=== PATIENT | female | born 1990 | race Caucasian/White ===

== ENCOUNTER 2016-05-17 14:39 | Emergency (ER) | payer SELFPAY | END 2016-05-17 18:10 | disposition home or self-care (01) | LOC: D.ER 14:39 | DX: J06.9 Acute upper respiratory infection, unspecified (principal) ==

== ENCOUNTER 2018-01-13 20:29 | Emergency (ER) | payer SELFPAY ==
[~2018-01-13] VITALS: Ht 149.9 cm; Wt 62.7 kg
[2018-01-13 20:32] VITALS: Ht 149.9 cm; Wt 62.7 kg
[2018-01-13 20:53] LABS: APPEARANCE HAZY (CLEAR); BILIRUBIN NEGATIVE (NEGATIVE); COLOR YELLOW (YELLOW); GLUCOSE NEGATIVE (NEGATIVE); KETONE NEGATIVE (NEGATIVE); NITRITE NEGATIVE (NEGATIVE); PROTEIN 1+ mg/dL (NEGATIVE); UROBILINOGEN NORMAL (NORMAL)
[2018-01-13 20:55] LABS: BACTERIA MODERATE /hpf (NONE SEEN); EPITHELIAL CELLS 0-5 /hpf (0-5); RED CELLS - URINE 25-50 /hpf (0-5)
[2018-01-13 20:56] LABS: CALCIUM OXALATE CRYSTALS 0-5 /hpf (NONE SEEN)
[2018-01-13 21:02] LABS: BASOPHILS 0.2 % (0-2); EOSINOPHILS 4.8 % (0-7); HEMATOCRIT 36.3 % (36.0-48.0); IMMATURE GRANULOCYTES 0.3 % (0-5); LYMPHOCYTES 19.6 % (15-50); MCH 27.7 pg (26.0-34.0); MCHC 33.1 g/dL (31.0-37.0); MCV 83.8 fL (80.0-100.0); MEAN PLATELET VOLUME 11.4 fL (7.4-10.4); MONOCYTES 5.8 % (2-11); NEUTROPHILS 69.3 % (40-80); PLATELET COUNT 156 10x3/uL (130-400); RBC 4.33 10x6/uL (4.00-5.40); RDW 14.1 % (11.5-14.5); WBC 11.5 10x3/uL (4.8-10.8)
[2018-01-13 21:09] LABS: ALBUMIN 3.6 g/dL (3.4-5.0); ANION GAP 7.5 mmol/L (8-16); BILIRUBIN - TOTAL 0.52 mg/dL (0.2-1.3); CALCIUM 7.9 mg/dL (8.5-10.1); POTASSIUM - SERUM 3.5 mmol/L (3.5-5.1); PROTEIN - SERUM 7.3 g/dL (6.4-8.2)
[2018-01-13 21:25] LABS: HCG SERUM POSITIVE (NEGATIVE)
[2018-01-13 23:51] VITALS: BP 115/85
== END 2018-01-13 23:51 | disposition home or self-care (01) ==
LOC: D.ER 20:29
PROVIDERS: Family Medicine
DX: O20.0 Threatened abortion (principal); Z3A.00 Weeks of gestation of pregnancy not specified

== ENCOUNTER 2018-01-25 21:50 | Emergency (ER) | payer BC ==
[~2018-01-25] VITALS: Ht 149.9 cm; Wt 68.0 kg
[2018-01-25 22:09] VITALS: Ht 149.9 cm; Wt 68.0 kg
[2018-01-25] MEDS ORDERED: PRENATAL COMPLE1 TAB PO (22:11)
[2018-01-25] MEDS ORDERED: MUPIROCIN22 GM TOPICAL (23:15)
[2018-01-25] MEDS ORDERED: CLEOCIN HCL300 MG PO (23:15)
[2018-01-25 23:49] VITALS: BP 118/78
== END 2018-01-25 23:46 | disposition home or self-care (01) ==
LOC: D.ER 21:50
DX: L02.31 Cutaneous abscess of buttock (principal)

== ENCOUNTER 2018-04-08 23:30 | Emergency (ER) | payer BC ==
[~2018-04-08] VITALS: Ht 149.9 cm; Wt 64.4 kg
[~2018-04-08 23:30] MED LIST: CLEOCIN HCL300 MG PO; MUPIROCIN22 GM TOPICAL; PRENATAL COMPLE1 TAB PO
[2018-04-08 23:38] VITALS: Ht 149.9 cm; Wt 64.4 kg
[2018-04-09 00:19] LABS: HCG URINE NEGATIVE (NEGATIVE)
[2018-04-09 00:30] LABS: APPEARANCE HAZY (CLEAR); COLOR YELLOW (YELLOW)
[2018-04-09 00:31] LABS: BACTERIA MANY /hpf (NONE SEEN); BILIRUBIN NEGATIVE (NEGATIVE); EPITHELIAL CELLS 0-5 /hpf (0-5); GLUCOSE NEGATIVE (NEGATIVE); KETONE NEGATIVE (NEGATIVE); NITRITE POSITIVE (NEGATIVE); PROTEIN NEGATIVE (NEGATIVE); RED CELLS - URINE 0-5 /hpf (0-5); UROBILINOGEN NORMAL (NORMAL)
[2018-04-09] MEDS ORDERED: MACROBID100 MG PO (00:34)
[2018-04-09 00:43] VITALS: BP 122/68
== END 2018-04-09 00:42 | disposition home or self-care (01) ==
LOC: D.ER 23:30
PROVIDERS: Family Medicine
DX: N39.0 Urinary tract infection, site not specified (principal)

== ENCOUNTER 2018-04-29 00:24 | Emergency (ER) | payer SELFPAY ==
[~2018-04-29] VITALS: Ht 149.9 cm; Wt 64.5 kg
[~2018-04-29 00:24] MED LIST changes: +MACROBID100 MG PO
[2018-04-29 00:33] VITALS: BP 118/70; Ht 149.9 cm; Wt 64.5 kg
[2018-04-29 01:10] LABS: BASOPHILS 0.5 % (0-2); EOSINOPHILS 3.5 % (0-7); HEMATOCRIT 41.7 % (36.0-48.0); HEMOGLOBIN 13.6 g/dL (12-16); IMMATURE GRANULOCYTES 0.3 % (0-5); LYMPHOCYTES 22.5 % (15-50); MCH 27.7 pg (26.0-34.0); MCHC 32.6 g/dL (31.0-37.0); MCV 84.9 fL (80.0-100.0); MEAN PLATELET VOLUME 12.4 fL (7.4-10.4); MONOCYTES 9.9 % (2-11); NEUTROPHILS 63.3 % (40-80); PLATELET COUNT 168 10x3/uL (130-400); RBC 4.91 10x6/uL (4.00-5.40); WBC 6.4 10x3/uL (4.8-10.8)
[2018-04-29 01:12] LABS: APPEARANCE CLEAR (CLEAR); BILIRUBIN NEGATIVE (NEGATIVE); COLOR DK YELLOW (YELLOW); GLUCOSE NEGATIVE (NEGATIVE); HCG SERUM NEGATIVE (NEGATIVE); KETONE NEGATIVE (NEGATIVE); NITRITE NEGATIVE (NEGATIVE); PROTEIN NEGATIVE (NEGATIVE); UROBILINOGEN NORMAL (NORMAL)
[2018-04-29 01:19] LABS: ALBUMIN 3.9 g/dL (3.4-5.0); ALKALINE PHOSPHATASE 74 U/L (46-116); ALT (SGPT) 17 U/L (10-68); BILIRUBIN - TOTAL 1.14 mg/dL (0.2-1.3); CALC OSMOLALITY 279 mosm/kg (275-300); CALCIUM 8.5 mg/dL (8.5-10.1); CARBON DIOXIDE 22.9 mmol/L (21.0-32.0); CHLORIDE - SERUM 104 mmol/L (98-107); CREATININE - SERUM 0.8 mg/dL (0.6-1.3); GLUCOSE 92 mg/dL (74-106); POTASSIUM - SERUM 3.7 mmol/L (3.5-5.1); PROTEIN - SERUM 8.5 g/dL (6.4-8.2); SODIUM 140 mmol/L (136-145); UREA NITROGEN 14 mg/dL (7-18); eGFR NON AFRICAN AMERICAN 90 mL/min (90-120)
[2018-04-29 01:27] LABS: AMYLASE - SERUM 45 U/L (25-115); LIPASE 165 U/L (73-393); TROPONIN-I < 0.017 ng/mL (0.000-0.060)
== END 2018-04-29 02:18 | disposition left against medical advice (07) ==
LOC: D.ER 00:24
PROVIDERS: Family Medicine
DX: R10.30 Lower abdominal pain, unspecified (principal)

== ENCOUNTER 2019-06-06 23:18 | Outpatient (CLI) | payer MEDICAID ==
[2018-04-29 00:33] VITALS: BMI 28.7
[2019-06-07 00:13] LABS: APPEARANCE HAZY (CLEAR); BILIRUBIN NEGATIVE (NEGATIVE); COLOR YELLOW (YELLOW); GLUCOSE NEGATIVE (NEGATIVE); KETONE NEGATIVE (NEGATIVE); NITRITE NEGATIVE (NEGATIVE); PROTEIN NEGATIVE (NEGATIVE); SPECIFIC GRAVITY 1.015 (1.005-1.020); UROBILINOGEN NORMAL (NORMAL)
[2019-06-07 00:15] LABS: AMORPHOUS SEDIMENT <1+ /lpf (NONE SEEN); BACTERIA FEW /hpf (NEGATIVE); EPITHELIAL CELLS 0-5 /hpf (0-5); RED CELLS - URINE NONE SEEN /hpf (0-5); WHITE CELLS - URINE 0-5 /hpf (NEGATIVE)
[2019-06-07 00:19] LABS: UDS - AMPHET NEGATIVE QUAL (NEGATIVE); UDS - BARB NEGATIVE QUAL (NEGATIVE); UDS - BENZO NEGATIVE QUAL (NEGATIVE); UDS - COCAINE NEGATIVE QUAL (NEGATIVE); UDS - OPIATE NEGATIVE QUAL (NEGATIVE); UDS - PCP NEGATIVE QUAL (NEGATIVE); UDS - THC NEGATIVE QUAL (NEGATIVE)
[2019-06-07 02:59] LABS: BASOPHILS 0.1 % (0-2); EOSINOPHILS 4.4 % (0-7); HEMATOCRIT 30.7 % (36.0-48.0); IMMATURE GRANULOCYTES 0.5 % (0-5); LYMPHOCYTES 13.5 % (15-50); MCHC 32.6 g/dL (31.0-37.0); MEAN PLATELET VOLUME 11.8 fL (7.4-10.4); MONOCYTES 6.4 % (2-11); NEUTROPHILS 75.1 % (40-80); RBC 3.57 10x6/uL (4.00-5.40); WBC 10.4 10x3/uL (4.8-10.8)
[2019-06-07 03:00] LABS: PLATELET COUNT 104 10x3/uL (130-400)
== END 2019-06-07 03:35 | disposition home or self-care (01) ==
LOC: D.LDO 23:18 → D.LD 23:21 → D.LDO 06-07 03:35
PROVIDERS: ATTEND Student in an Organized Health Care Education/Training Program
DX: O26.892 Other specified pregnancy related conditions, second trimester (principal); Z3A.26 26 weeks gestation of pregnancy; R10.9 Unspecified abdominal pain

== ENCOUNTER 2019-07-13 08:00 | Outpatient (CLI) | payer MEDICAID ==
[2018-04-29 00:33] VITALS: Ht 149.9 cm; Wt 79.8 kg
[~2019-07-13] VITALS: Ht 149.9 cm; Wt 79.8 kg
[2019-07-13 12:12] LABS: BASOPHILS 0.2 % (0-2); EOSINOPHILS 5.4 % (0-7); HEMOGLOBIN 10.5 g/dL (12-16); IMMATURE GRANULOCYTES 1.1 % (0-5); LYMPHOCYTES 16.2 % (15-50); MCH 27.2 pg (26.0-34.0); MCHC 31.8 g/dL (31.0-37.0); MCV 85.5 fL (80.0-100.0); MEAN PLATELET VOLUME 12.5 fL (7.4-10.4); NEUTROPHILS 70.1 % (40-80); RBC 3.86 10x6/uL (4.00-5.40); RDW 13.8 % (11.5-14.5); WBC 9.5 10x3/uL (4.8-10.8)
[2019-07-13 12:19] LABS: PLATELET COUNT 132 10x3/uL (130-400)
[2019-07-13 12:27] LABS: CALC OSMOLALITY 275 mosm/kg (275-300); CALCIUM 8.6 mg/dL (8.5-10.1); CARBON DIOXIDE 26.1 mmol/L (21.0-32.0); CHLORIDE - SERUM 105 mmol/L (98-107); CREATININE - SERUM 0.5 mg/dL (0.6-1.3); GLUCOSE 92 mg/dL (74-106); POTASSIUM - SERUM 3.6 mmol/L (3.5-5.1); SODIUM 140 mmol/L (136-145); UREA NITROGEN 4 mg/dL (7-18); eGFR NON AFRICAN AMERICAN > 90 mL/min (90-120)
== END 2019-07-13 08:01 | disposition home or self-care (01) ==
LOC: D.OPS 08:00 → D.PAN 07-14 11:00 → D.OPS 07-14 11:00 → EDSTATUS 07-14 11:00 → D.OPS 07-14 13:00
PROVIDERS: ATTEND Surgery
DX: C50.912 Malignant neoplasm of unspecified site of left female breast (principal)

== ENCOUNTER 2019-08-16 08:29 | Observation (INO) | payer MEDICAID ==
[~2019-08-16] VITALS: Ht 149.9 cm; Wt 74.1 kg
--- NOTE | ~2019-08-16 | OP ---
PATIENT NAME: ROBERTO ORELLANA MEDICAL RECORD: [id number] :86 LOCATION:[id number] ADMISSION DATE:08/17/19 SURGEON: VALDO GREEN MD DATE OF OPERATION: 08/17/2019 PREOPERATIVE DIAGNOSES: 1. Left invasive ductal carcinoma. 2. . POSTOPERATIVE DIAGNOSES: 1. Left invasive ductal carcinoma. 2. . PROCEDURE: Bilateral simple mastectomies with left sentinel lymph node biopsy. SURGEON: Valdo Green MD REPORT OF PROCEDURE: The patient underwent lymphoscintigraphy, which showed uptake in the left axilla. The patient was taken to the operating room where her chest and axilla were prepped and draped in sterile fashion. We approached the left side first. An ovoid incision was made around the patient's left nipple areolar complex and electrocautery was used to dissect through the subcutaneous tissues. We dissected down through the subcutaneous tissue and due to the extremely large size of this lady's breast, it was difficult to determine where her demarcation was between the subcutaneous tissues and the breast tissue. We eventually dissected superiorly until we were able to get over top of the palpable mass, which was present at the 11 o'clock position in the left breast. We continued this dissection of the breast and subcutaneous tissues up to the clavicle on the left side. We then extended our dissection subcutaneously towards the midline overlying the sternum and inferiorly towards the rectus musculature. Laterally, we went out towards the axilla and once we had the breast freed up from all surrounding tissues, then, it was taken off of the pectoralis muscle including the fascia using electrocautery. This portion of the breast tissue was marked with sutures and then we reapproximated some of the fatty tissue, which would have been taken off during our dissection and noted to have it in more of an anatomical location. This was sent off for permanent specimen. We then inspected the patient's axilla and found a single sentinel lymph node with the reading of 13,000. This was excised and clips were placed proximally and distally on any of the lymphatic vessels. This was sent off for permanent specimen as well. We inspected the remainder of the axilla and could not find any active nodules which required resection. We then irrigated out the wound with sterile water. Any bleeding that was found was treated with electrocautery or tied off with 3-0 silk ties. Once we had good blood control, then 10 flat MARCEL drains were inserted into the subcutaneous tissues coming in from the left lateral chest. Once we had this done, we ended up debriding some of the subcutaneous fatty tissue on the inferior aspect of the wound and took off some excess skin in order to make it more cosmetically appealing appearance to the patient's incision all this tissue that was removed was sent off for permanent specimen. We then reapproximated the subcutaneous tissues with multiple interrupted 3-0 Vicryl and the skin was closed with elizabet. We approached the right side. We made a large ovoid incision around the nipple areolar complex and using electrocautery, came down through the subcutaneous tissues and made a flap superiorly and inferiorly up to the patient's clavicle and down to the patient's rectus musculature. We went medially towards the sternum and laterally out towards the axilla. Once we had OPERATIVE REPORT [id number] ROBERTO ORELLANA all of this tissue freed up, then we took the breast tissue off of the chest wall including the pectoralis fascia using electrocautery. This specimen was marked appropriately and sent off for permanent. There was a lot of thickness to the tissue on the inferior aspect of the incision in this area and a little medially, we debrided some of the subcutaneous tissue and sent this off for permanent specimen. This made of a better cosmetic appearance to our repair. We then placed a 10 flat MARCEL drains times 2 into the wound bed coming in from the right lateral chest. The wounds were reapproximated with multiple interrupted 3-0 Vicryls and the skin was closed with elizabet. The drains were sutured into place with 2-0 nylons. COMPLICATIONS: None. CONDITION: Stable. ANESTHESIA: General endotracheal and paravertebral blocks. BLOOD LOSS: 500 mL. TRANSINT:[id number] Voice Confirmation ID: [id number] DOCUMENT ID: [id number] VALDO GREEN MD CC: ANT GONZALEZ DO and KOFFI DAO MD [id number] DICTATION DATE: 08/17/19 1508 STRAIN TECHNICIAN: 08/17/19 1606 ADM IN [facility] [address] [place] [address]
[2019-08-16] MEDS ORDERED: IBUPROFEN600 MG PO (14:37)
[2019-08-16 15:10] LABS: BASOPHILS 0.5 % (0-2); EOSINOPHILS 6.4 % (0-7); HEMATOCRIT 34.3 % (36.0-48.0); HEMOGLOBIN 10.1 g/dL (12-16); IMMATURE GRANULOCYTES 0.4 % (0-5); LYMPHOCYTES 29.3 % (15-50); MCH 25.8 pg (26.0-34.0); MCHC 29.4 g/dL (31.0-37.0); MCV 87.5 fL (80.0-100.0); MEAN PLATELET VOLUME 10.9 fL (7.4-10.4); MONOCYTES 6.4 % (2-11); RBC 3.92 10x6/uL (4.00-5.40); RDW 14.3 % (11.5-14.5); WBC 7.7 10x3/uL (4.8-10.8)
[2019-08-16 15:14] LABS: PLATELET COUNT 240 10x3/uL (130-400)
[2019-08-16 15:23] LABS: APTT 32.1 SECONDS (22.8-39.4); INR 1.04 (0.85-1.17); PROTIME 13.6 SECONDS (11.6-15.0)
[2019-08-16 15:32] LABS: CALC OSMOLALITY 276 mosm/kg (275-300); CALCIUM 8.6 mg/dL (8.5-10.1); CARBON DIOXIDE 27.6 mmol/L (21.0-32.0); CHLORIDE - SERUM 103 mmol/L (98-107); CREATININE - SERUM 0.9 mg/dL (0.6-1.3); GLUCOSE 75 mg/dL (74-106); POTASSIUM - SERUM 4.1 mmol/L (3.5-5.1); SODIUM 139 mmol/L (136-145); UREA NITROGEN 13 mg/dL (7-18); eGFR NON AFRICAN AMERICAN 78 mL/min (90-120)
[2019-08-17 06:42] VITALS: BP 119/76; BMI 33.0
[2019-08-17 06:56] LABS: HCG URINE NEGATIVE (NEGATIVE)
[2019-08-17 15:40] VITALS: BP 97/61
--- NOTE | 2019-08-17 15:59 | NUR ---
RECEIVED PATIENT FROM RECOVERY. NO C/O PAIN. NO S/S OF ACUTE DISTRESS NOTED. IV TO RIGHT HAND, NS INFUSING @ 75ML/HR. SITE PATENT WITHOUT REDNESS OR SWELLING. BILATERAL MASTECTOMY, DRESSING C/D/I. 4 MARCEL DRAINS, 2 ON THE RIGHT SIDE OF CHEST AND 2 ON LEFT SIDE OF CHEST. ALERT AND ORIENTED. WEARS DENTURES. DENIES ANY NEEDS AT THIS TIME. CALL LIGHT IN REACH. WILL CONTINUE TO MONITOR.
--- NOTE | 2019-08-17 18:32 | NUR ---
RESTING IN BED WITH EYES CLOSED. RESPIRATIONS EVEN AND UNLABORED. NO C/O PAIN. NO S/S OF ACUTE DISTRESS NOTED. DENIES ANY NEEDS AT THIS TIME. CALL LIGHT IN REACH. WILL CONTINUE TO MONITOR.
[2019-08-17 18:42] VITALS: BP 97/61; Ht 149.9 cm; Wt 74.1 kg
[2019-08-17 20:00] VITALS: BP 87/42
--- NOTE | 2019-08-17 20:00 | NUR ---
RESTING IN BED, DENIES PAIN OR NEEDS AT THIS TIME, ESTER WRAP DRESSING INPLACE AROUND CHEST,MARCEL DRAIN X 4 WITH BLOODY DRAINAGE NOTED SEE SHIFT ASSESSMENT, CALL LIGHT IN REACH
[2019-08-18] VITALS: BP 87/44
[2019-08-18 04:00] VITALS: BP 94/43
[2019-08-18 04:48] LABS: CARBON DIOXIDE 25.5 mmol/L (21.0-32.0); CHLORIDE - SERUM 105 mmol/L (98-107); CREATININE - SERUM 0.8 mg/dL (0.6-1.3); GLUCOSE 97 mg/dL (74-106); POTASSIUM - SERUM 3.5 mmol/L (3.5-5.1); SODIUM 138 mmol/L (136-145); eGFR NON AFRICAN AMERICAN 89 mL/min (90-120)
[2019-08-18 04:52] LABS: CALC OSMOLALITY 273 mosm/kg (275-300); UREA NITROGEN 8 mg/dL (7-18)
[2019-08-18 04:53] LABS: CALCIUM 6.5 mg/dL (8.5-10.1)
[2019-08-18 06:00] LABS: LYMPHOCYTES 19.7 % (15-50); MCH 26.6 pg (26.0-34.0); MCHC 31.2 g/dL (31.0-37.0); MEAN PLATELET VOLUME 10.5 fL (7.4-10.4); NEUTROPHILS 71.3 % (40-80); PLATELET COUNT 275 10x3/uL (130-400); RDW 13.4 % (11.5-14.5)
[2019-08-18 06:10] LABS: RBC 2.78 10x6/uL (4.00-5.40); WBC 10.5 10x3/uL (4.8-10.8)
[2019-08-18 06:12] LABS: HEMATOCRIT 23.7 % (36.0-48.0); HEMOGLOBIN 7.4 g/dL (12-16); MCV 85.3 fL (80.0-100.0)
[2019-08-18 08:00] VITALS: BP 97/56
--- NOTE | 2019-08-18 08:00 | NUR ---
ALERT AND ORIENTED X4. BANDAGES INTACT TO CHEST WITH MARCEL DRAINS X4. DENIES ANY PAIN OR DISCOMFORT WITH GOOD HAND GRASP AND DISCUSSED LIFTING RESTRICTIONS. RADIAL PULSES NOTED WITH NO PERIPHERAL EDEMA NOTED. IV TO RT. HAND S/L PER ORDER. VOICED DESIRE TO INCREASE DIET. ENCOURAGED TO USE CALL LIGHT FOR ASISST
[2019-08-18 12:00] VITALS: BP 103/66
[2019-08-18 12:46] LABS: HEMATOCRIT 27.3 % (36.0-48.0); HEMOGLOBIN 8.1 g/dL (12-16)
[2019-08-18] MEDS ORDERED: HYDROCODON-ACE1 EA10 PO (13:12)
--- NOTE | 2019-08-18 15:50 | NUR ---
IV DISCONTINUED AND VERBALIZED UNDERSTANDING OF DISCHARGE INSTRUCTIONS INCLUDING DRESSING CHANGES AND EMPTYING OF MARCEL DRAINS. STABLE AT TIME OF DEPARTURE.
--- NOTE | 2019-08-18 19:46 | MORECARE ---
CASE MANAGEMENT DISCHARGE SUMMARY PATIENT: ROBERTO ORELLANAA UNIT: [id number] ADM DATE: 08/17/19 AGE: 28 : 86 SEX: F ROOM/BED: D.2239 AUTHOR: JULISA GREENBERG PHYSICIAN: REFERRING PHYSICIAN: ANDRIA GREEN MD DATE OF SERVICE: 08/18/19 Discharge Plan Patient Name: ROBERTO ORELLANA Facility: [facility]:[place] : 1990 Planned Disposition: Anticipated Discharge Date: Discharge Date: 08/18/2019 Expected LOS: Initial Reviewer: [email or web address] Initial Review Date: 08/17/2019 Generated: 08/18/19 8:45 pm Patient Name: ROBERTO ORELLANA Page [id number] at 1948 All edits/amendments must be made on the electronic document DICTATION DATE: 08/18/191944 FLEET MANAGER/DISPATCH: DIANE 08/18/191944 RPT#: [id number] DC DATE:08/18/19 STATUS: DIS IN [facility] [address] [place] [address] END OF REPORT
== END 2019-08-18 15:50 | disposition home or self-care (01) ==
LOC: D.MS 08-17 05:58 → D.SDCHOLD 08-17 05:58 → D.MS 08-17 05:58 → D.SDCHOLD 08-17 07:30 → OBSVTIME 08-17 13:59 → D.MS 08-17 14:50
PROVIDERS: ADMIT Surgery; ATTEND Surgery
DX: C50.912 Malignant neoplasm of unspecified site of left female breast (principal); D62 Acute posthemorrhagic anemia

== ENCOUNTER 2019-12-18 13:51 | Emergency (ER) | payer OTHER ==
[2019-08-17 18:42] VITALS: BMI 33.0
[~2019-12-18 13:51] MED LIST changes: +HYDROCODON-ACE1 EA10 PO; +IBUPROFEN600 MG PO
== END 2019-12-18 15:00 | disposition left against medical advice (07) ==
LOC: D.ER 13:51
DX: N64.4 Mastodynia (principal)